=== PATIENT | male | born 1945 | race Caucasian/White ===

== ENCOUNTER → 2016-11-24 | Outpatient (CLI) | payer MEDICARE, OTHER | LOC: LABNPT 18:12 → QUICK 18:12 | PROVIDERS: ATTEND Nurse Practitioner Family | DX: J02.9 Acute pharyngitis, unspecified (principal) | CPT/HCPCS: 87070 ==

== ENCOUNTER → 2021-12-17 | Outpatient (CLI) | payer OTHER, MEDICARE ==
[2021-12-17 06:58] LABS: ALBUMIN 3.7 GM/DL (3.2-4.5); POTASSIUM 4.3 MMOL/L (3.6-5.0)
[2021-12-17 06:59] LABS: CALCIUM 8.7 MG/DL (8.5-10.1)
[2021-12-17 07:02] LABS: BILIRUBIN,TOTAL 0.8 MG/DL (0.1-1.0)
[2021-12-17 07:04] LABS: CREATININE SERUM 1.11 MG/DL (0.60-1.30)
== END ==
LOC: LABNPT 06:43
PROVIDERS: ATTEND Internal Medicine
DX: Z01.89 Encounter for other specified special examinations (principal)
CPT/HCPCS: 80053

== ENCOUNTER → 2022-01-03 | Outpatient (CLI) | payer MEDICARE ==
[~2022-01-03] VITALS: Ht 185 cm; Wt 77.0 kg
[~2022-01-03] MED LIST: CATHETER FLUSH 10 ML SYR IVP PRN
[2022-01-03 09:08] VITALS: BP 208/105
--- NOTE | 2022-01-04 09:07 | NUCLEAR STRESS TEST ---
TREADMILL NUCLEAR STRESS TEST Date of procedure: 01/03/2022. Primary care provider: Kajal Turcios APRN. Admitting physician: Bryon Tomlin Jr., MD. INDICATION: Paroxysmal atrial fibrillation. BASELINE ELECTROCARDIOGRAM: Sinus rhythm with diffuse, nonspecific ST-T wave changes. STRESS TEST PROCEDURE: The patient was exercised for a total of 4 minutes and 31 seconds of the standard Gibson protocol achieving a maximum MET level of 6.4. The resting heart rate was 82 bpm and the peak heart rate was 132 bpm, which represents 91% of the maximum predicted heart rate. The resting blood pressure was 205/105 mmHg and the peak blood pressure was 212/92 mmHg. This represents a normal heart rate and a blunted blood pressure response to exercise with resting hypertension. The test was stopped due to fatigue. There was no chest discomfort during the test. There were no arrhythmias during the test. There were no significant stress induced electrocardiogram changes. The patient exhibited good exercise capacity for age. NUCLEAR PROCEDURE: The patient was administered 10.7 mCi of intravenous technetium 99m Tetrofosmin at rest for the rest images. The patient was subsequently administered 31 mCi of intravenous technetium 99 M Tetrofosmin at peak stress for the stress images. Following an appropriate wait after each injection, imaging was obtained. The images were subsequently processed and reformatted in the usual views. Gated imaging was obtained. The image quality was adequate with a mild degree of gastrointestinal attenuation artifact. CT attenuation correction was used as a adjunct to standard imaging. Both the c orrected and uncorrected images were reviewed for interpretation. NUCLEAR RESULTS: There was normal myocardial perfusion in all segments without evidence of infarction or ischemia. There was normal left ventricular chamber size with an end-diastolic volume of 50 mL and an end-systolic volume of 13 mL. There was no evidence of transient ischemic dilatation. The TID ratio was 1.18. There was normal wall motion in all segments with a calculated ejection fraction of 73%. IMPRESSION: 1. Normal heart rate and a blunted blood pressure response to exercise with resting hypertension. 2. There was no chest discomfort, arrhythmias, or electrocardiogram changes during the test. 3. The patient exhibited good exercise capacity for age at 4 minutes and 31 seconds of the Gibson protocol. 4. There was normal myocardial perfusion in all segments without evidence of infarction or ischemia. 5. There was normal wall motion in all segments with a calculated ejection fraction of 73%. Certain portions of this document may have been dictated utilizing voice recognition technology. Inherent to this technology, typographical and grammatical errors may exist. As much as I am diligent to identify and correct these mistakes, some errors may remain in the document. BRYON TOMLIN JR, MD Jan 04, 2022 09:07
== END ==
LOC: CARD 07:07
PROVIDERS: ATTEND Internal Medicine Cardiovascular Disease
DX: I48.0 Paroxysmal atrial fibrillation (principal)
CPT/HCPCS: 78452; 93017; A9502

== ENCOUNTER 2022-01-04 09:00 | Outpatient (RCR) | payer MEDICARE | END 2022-01-12 | disposition home or self-care (01) | LOC: CARD 09:00 | PROVIDERS: ATTEND Internal Medicine Cardiovascular Disease | DX: I48.0 Paroxysmal atrial fibrillation (principal) ==

== ENCOUNTER 2022-05-30 07:57 | Day surgery (SDC) | payer MEDICARE ==
[~2022-05-30] VITALS: Ht 185.4 cm; Wt 77.6 kg
[2022-05-30] VITALS (9 sets, daily range): BP systolic 94–150; BP diastolic 66–106
[2022-05-30] MEDS ORDERED: CATHETER FLUSH 10 ML SYR IV PRN (08:15)
[2022-05-30] MEDS ORDERED: NS IV 1000 ML 1,000 ML IV ONE (08:15)
[2022-05-30] MEDS ORDERED: NS IV 1000 ML 1,000 ML ONE (08:23)
[2022-05-30] MEDS ORDERED: proPOfol 200 MG/20 ML (DIPRIVAN) VIAL IV ONE (08:24)
--- NOTE | 2022-05-30 08:40 | Cardiac Procedure Note-[facility] ---
Cardiology Procedures Date of Procedure 05/30/22 DIRECT-CURRENT CARDIOVERSION INDICATION: Persistent atrial fibrillation. PROCEDURE: After informed consent and in the fasting state, deep sedation was provided by the anesthesia department. I subsequently performed direct-current cardioversion with 1 synchronized biphasic shock at 100 J with successful conversion of atrial fibrillation to sinus bradycardia. IMPRESSION: 1. Status post successful direct-current cardioversion with 1 synchronized biphasic shock at 100 J with conversion of atrial fibrillation to sinus bradycardia. Certain portions of this document may have been dictated utilizing voice recognition technology. Inherent to this technology, typographical and gra mmatical errors may exist. As much as I am diligent to identify and correct these mistakes, some errors may remain in the document. SUGAR BENTON JR, MD May 30, 2022 08:40
[2022-05-30] MEDS ORDERED: RIVA20TA PO (09:01)
[2022-05-30] MEDS ORDERED: CARV6.252 PO (09:01)
[2022-05-30] MEDS ORDERED: AMLO-251 PO (09:01)
[2022-05-30] MEDS ORDERED: LEVO50CA4 PO (09:01)
[2022-05-30] MEDS ORDERED: METF750T45 PO (09:01)
[2022-05-30] MEDS ORDERED: LOSA50TA63 PO (09:01)
[2022-05-30] MEDS ORDERED: ASPI-1238 PO (09:01)
[2022-05-30] MEDS ORDERED: OMG1KC PO (09:01)
[2022-05-30] MEDS ORDERED: DAPA5TAB PO (09:01)
[2022-05-30] MEDS ORDERED: STL80T PO (09:01)
--- NOTE | 2022-05-30 09:50 | Anesthesia-General Post-Op ---
MAC Patient Condition Mental Status/LOC: Same as Preop Cardiovascular: Satisfactory Nausea/Vomiting: Absent Respiratory: Satisfactory Pain: Controlled Complications: Absent Post Op Complications Complications None Follow Up Care/Instructions Patient Instructions None needed. Anesthesiology Discharge Order Discharge Order Patient is doing well, no complaints, stable vital signs, no apparent adverse anesthesia problems. No complications reported per nursing. HERRERA MICHAEL CRNA May 30, 2022 09:50
== END 2022-05-30 09:35 | disposition home or self-care (01) ==
LOC: CATH 07:57
PROVIDERS: ATTEND Internal Medicine Cardiovascular Disease
DX: I48.19 Other persistent atrial fibrillation (principal); I12.9 Hypertensive chronic kidney disease with stage 1 through stage 4 chronic kidney disease, or unspecified chronic kidney disease; E78.2 Mixed hyperlipidemia; E11.22 Type 2 diabetes mellitus with diabetic chronic kidney disease; N18.31 Chronic kidney disease, stage 3a; E03.9 Hypothyroidism, unspecified; Z87.891 Personal history of nicotine dependence; Z79.84 Long term (current) use of oral hypoglycemic drugs; Z79.82 Long term (current) use of aspirin; Z79.01 Long term (current) use of anticoagulants; Z85.51 Personal history of malignant neoplasm of bladder
CPT/HCPCS: 87081; 92960; 93005

== ENCOUNTER → 2022-10-22 | Day surgery (SDC) | payer MEDICARE ==
[~2022-10-22] VITALS: Ht 185.4 cm; Wt 78.4 kg
[2022-10-22] VITALS (10 sets, daily range): BP systolic 113–171; BP diastolic 73–113
[~2022-10-22] MED LIST changes: +AMLO-251 PO; +ASPI-1238 PO; +CARV6.252 PO; -CATHETER FLUSH 10 ML SYR IVP PRN; +DAPA5TAB PO; +LEVO50CA4 PO; +LIDOCAINE 1% INJ 20 ML VIAL ONE; +LOSA50TA63 PO; +METF750T45 PO; +NS IV 1000 ML 1,000 ML IV SCH; +NS IV 1000 ML 1,000 ML ONE; +OMG1KC PO; +RIVA20TA PO; +ROSU10TA28 PO; +SOTA80TA62 PO; +STL80T PO; +proPOfol 200 MG/20 ML (DIPRIVAN) VIAL IV ONE
[2022-10-22 11:37] LABS: HEMATOCRIT 49 % (40-54); HEMOGLOBIN 16.5 g/dL (13.3-17.7); MEAN CORPUSCULAR HEMOGLOBIN 30 pg (25-34); MEAN CORPUSCULAR HGB CONC 34 g/dL (32-36); MEAN CORPUSCULAR VOLUME 90 fL (80-99); MEAN PLATELET VOLUME 10.8 fL (9.0-12.2); PLATELET COUNT 181 10^3/uL (130-400); WHITE BLOOD COUNT 8.1 10^3/uL (4.3-11.0)
[2022-10-22 12:01] LABS: INR 1.3 (0.8-1.4); PROTHROMBIN TIME PATIENT 16.4 SEC (12.2-14.7)
[2022-10-22 12:04] LABS: ALBUMIN 4.3 GM/DL (3.2-4.5); BILIRUBIN,TOTAL 0.9 MG/DL (0.1-1.0); CALCIUM 9.2 MG/DL (8.5-10.1); CREATININE SERUM 0.98 MG/DL (0.60-1.30); POTASSIUM 4.3 MMOL/L (3.6-5.0); TOTAL PROTEIN 7.4 GM/DL (6.4-8.2)
--- NOTE | 2022-10-22 20:50 | OPERATIVE REPORT ---
DATE OF SERVICE: 10/22/2022 PREOPERATIVE DIAGNOSIS: Atrial fibrillation. POSTOPERATIVE DIAGNOSIS: Sinus rhythm. PROCEDURE: External electrical cardioversion. INDICATIONS: The patient is a 76-year-old gentleman with a history of palpitations and has previously been diagnosed as having paroxysmal atrial fibrillation. He has had recurrence of atrial fibrillation and is intermittently symptomatic from it. At his recent office visit, sotalol was increased and external electrical cardioversion was scheduled. He is chronically on oral anticoagulation and has not had any gaps in the anticoagulation. Today, he came to the heart center. The nurse retail merchandising specialist provided short-acting anesthesia. 120 joules of biphasic shocks were delivered through external patches, which changed atrial fibrillation to sinus rhythm. He tolerated the procedure well. Job ID: [id number] DocumentID: [id number] Dictated Date: 10/22/2022 12:30:52 Line Analyst Date: 10/22/2022 20:49:00 Dictated By: BRADFORD CUNNINGHAM MD; EVA; FACP; FACC;
--- NOTE | 2022-10-22 21:07 | OPERATIVE REPORT ---
DATE OF SERVICE: 10/22/2022 PREOPERATIVE DIAGNOSIS: Near syncope. POSTOPERATIVE DIAGNOSIS: Near syncope. PROCEDURE: Implantable loop recorder implantation. INDICATIONS: The patient is a 76-year-old man who has had near syncope. He also has a history of sinus node dysfunction. Implantable loop recorder implantation was carried out today after having obtained an informed consent. DESCRIPTION OF PROCEDURE: [facility] was [facility] to [facility]. The left prepectoral area was prepared and draped in the usual sterile fashion. An 1% lidocaine was used for local anesthesia. The tools provided with the [employer] LINQ II device were used to make a subcutaneous pocket anterior to the fourth intercostal space into which the device was placed and the wound edges were closed using Dermabond and Steri-Strips. The serial number of the device is [id number]. The patient tolerated the procedure well. Job ID: [id number] DocumentID: [id number] Dictated Date: 10/22/2022 12:46:36 Automatic Coil Machine Operator Date: 10/22/2022 21:05:00 Dictated By: BRADFORD CUNNINGHAM MD; EVA; FACP; FACC;
--- NOTE | 2022-10-23 07:29 | Anesthesia-General Post-Op ---
MAC Patient Condition Mental Status/LOC: Same as Preop Cardiovascular: Satisfactory Nausea/Vomiting: Absent Respiratory: Satisfactory Pain: Controlled Complications: Absent Post Op Complications Complications None Follow Up Care/Instructions Patient Instructions None needed. Anesthesiology Discharge Order Discharge Order Patient is doing well, no complaints, stable vital signs, no apparent adverse anesthesia problems. No complications reported per nursing. AGUSTINA MAR CRNA Oct 23, 2022 07:29
== END | disposition home or self-care (01) ==
LOC: SDC 10:55
PROVIDERS: ATTEND Internal Medicine Cardiovascular Disease
DX: I48.0 Paroxysmal atrial fibrillation (principal); R55 Syncope and collapse; R00.2 Palpitations; I49.5 Sick sinus syndrome; E11.9 Type 2 diabetes mellitus without complications; E03.9 Hypothyroidism, unspecified; I12.9 Hypertensive chronic kidney disease with stage 1 through stage 4 chronic kidney disease, or unspecified chronic kidney disease; E78.2 Mixed hyperlipidemia; N18.31 Chronic kidney disease, stage 3a; Z85.51 Personal history of malignant neoplasm of bladder; Z79.01 Long term (current) use of anticoagulants; Z87.891 Personal history of nicotine dependence; Z79.84 Long term (current) use of oral hypoglycemic drugs; Z79.890 Hormone replacement therapy; Z79.899 Other long term (current) drug therapy
CPT/HCPCS: 33285; 80053; 80061; 84443; 85027; 85610; 85730; 87081; 92960; 93005; C1764; 36415